=== PATIENT | male | born 1950 | race African-American/Black ===

== ENCOUNTER 2021-10-29 09:28 | Inpatient (IN) | payer BC, MEDICARE ==
[~2021-10-29] VITALS: Ht 190.5 cm; Wt 89.9 kg
[2021-10-29 10:44] LABS: EOSINOPHILS % 0.1 % (0.0-5.0); HEMOGLOBIN. 15.4 g/dL (14.0-18.0); LYMPHOCYTES % 10.9 % (20.0-50.0); MEAN CORPUSCULAR VOLUME 102.6 fL (80.0-94.0); MONOCYTES % 8.5 % (2.0-8.0); NEUTROPHILS % 80.5 % (40.0-76.0); RED BLOOD CELL COUNT 4.68 mill/uL (4.7-6.1); RED CELL DISTRIBUTION WIDTH 17.9 % (11.6-14.6)
[2021-10-29 10:46] LABS: CHLORIDE 115 mEq/L (98-107)
[2021-10-29 10:52] LABS: INR 1.7; PROTHROMBIN TIME 17.7 sec (9.6-11.0)
[2021-10-29 12:02] LABS: PLATELET ESTIMATE DECREASED
[2021-10-29 12:05] LABS: MEAN PLATELET VOLUME 11.5 fl (7.4-10.4); PLATELET 93 x1000/uL (130-400)
[2021-10-29] MEDS ORDERED: VANCOMYCIN 1G PREMIX 200 ML IV ONE (12:15)
[2021-10-29] MEDS ORDERED: PIPERACILLIN/TAZ 3.375G PREMIX 50 ML IV ONE (12:15)
[2021-10-29] MEDS ORDERED: VANCOMYCIN 1G PREMIX 200 ML IV NR (12:43)
[2021-10-29] MEDS ORDERED: VANCOMYCIN 1GM PMX (XELLIA) 200 ML IV NR (13:00)
[2021-10-29] MEDS ORDERED: PIPERACILLIN/TAZ 3.375G PREMIX 50 ML IV SCH ×2 (14:30→22:00)
[2021-10-29] MEDS ORDERED: ACETAMINOPHEN 325MG TABLET PO PRN (15:30)
[2021-10-29] MEDS ORDERED: VANCOMYCIN 1G PREMIX 200 ML IV SCH (15:30)
[2021-10-29] MEDS ORDERED: CLONIDINE 0.1MG TABLET PO PRN (15:30)
[2021-10-29] MEDS ORDERED: ONDANSETRON HCL 4MG/2ML INJ IV PRN (15:30)
[2021-10-29] MEDS ORDERED: ENOXAPARIN 40MG/0.4ML SYR SUBCUT SCH (18:00)
[2021-10-29] MEDS: IPRATROPIUM/ALBUTEROL 0.5-3(2.5)MG/3ML NEB HHN PRN (19:53)
[2021-10-29] MEDS: PIPERACILLIN/TAZOBACTAM 3.375G in DEXT 5% WATER 50ML IV SCH (22:38)
[2021-10-29] MEDS ORDERED: VANCOMYCIN 1.25GM PMX (XELLIA) 250 ML IV SCH (23:00)
[2021-10-30] VITALS (8 sets, daily range): BP systolic 133–156; BP diastolic 74–91
[2021-10-30] MEDS: LORAZEPAM 2MG/ML CPJ IV PRN (00:08)
[2021-10-30 02:05] LABS: CREATINE KINASE MB FRACTION 3.2 ng/mL (0.5-3.6)
[2021-10-30] MEDS: IPRATROPIUM/ALBUTEROL 0.5-3(2.5)MG/3ML NEB HHN PRN ×5 (04:33→21:11)
[2021-10-30] MEDS: PIPERACILLIN/TAZOBACTAM 3.375G in DEXT 5% WATER 50ML IV SCH ×3 (05:22→22:48)
[2021-10-30 06:58] LABS: CREATINE KINASE MB FRACTION 2.4 ng/mL (0.5-3.6)
[2021-10-30 07:00] LABS: HEMATOCRIT. 47.1 % (42.0-52.0); LYMPHOCYTES % 10.2 % (20.0-50.0); MEAN CORPUSCULAR HEMOGLOBIN 32.6 pg (28.0-32.0); MEAN CORPUSCULAR VOLUME 102.2 fL (80.0-94.0); MONOCYTES % 10.5 % (2.0-8.0); NEUTROPHILS % 79.3 % (40.0-76.0); PLATELET 90 x1000/uL (130-400); RED BLOOD CELL COUNT 4.61 mill/uL (4.7-6.1); RED CELL DISTRIBUTION WIDTH 18.3 % (11.6-14.6)
[2021-10-30] MEDS: ASPIRIN 81MG TABLET PO SCH ×2 (09:00→10:32)
[2021-10-30] MEDS: METOPROLOL TARTRATE 50MG TABLET PO SCH ×3 (09:00→21:00)
[2021-10-30] MEDS ORDERED: AMLO5TAB88 PO (18:03)
[2021-10-30] MEDS ORDERED: ASPI-1497 MT (18:03)
[2021-10-30] MEDS ORDERED: DAPA10TA MT (18:03)
[2021-10-30] MEDS ORDERED: DEXT 5%/0.45% NACL 1000ML 1,000 ML IV SCH (19:15)
[2021-10-30 21:17] LABS: CREATINE KINASE 117 IU/L (39-308)
[2021-10-30] MEDS ORDERED: ACETAMINOPHEN 650MG/20.3ML UDC PO PRN (21:45)
[2021-10-30] MEDS: METHYLPREDNISOLONE SOD SUCC 40 MG/ML VIAL IV SCH (22:48)
[2021-10-31] VITALS (43 sets, daily range): BP systolic 80–156; BP diastolic 25–118
[2021-10-31] MEDS: IPRATROPIUM/ALBUTEROL 0.5-3(2.5)MG/3ML NEB HHN SCH ×4 (01:07→22:03)
[2021-10-31 01:56] LABS: CLARITY URINE CLOUDY (CLEAR); COLOR URINE YELLOW (YELLOW); KETONES URINE TRACE (NEGATIVE); LEUKOCYTE ESTERASE URINE NEGATIVE (NEGATIVE); NITRITE URINE NEGATIVE (NEGATIVE); OCCULT BLOOD URINE NEGATIVE (NEGATIVE); PROTEIN URINE TRACE (NEGATIVE); SPECIFIC GRAVITY URINE 1.025 (1.005-1.030)
[2021-10-31 02:29] LABS: CANNABINOID URINE SCREEN NEGATIVE (NEGATIVE); OPIATES URINE SCREEN NEGATIVE (NEGATIVE); PHENCYCLIDINE URINE SCREEN NEGATIVE (NEGATIVE)
[2021-10-31 02:30] LABS: *AMPHETAMINES SCREEN URINE NEGATIVE (NEGATIVE); *BARBITURATES SCREEN URINE NEGATIVE (NEGATIVE); *BENZODIAZEPINES SCREEN URINE NEGATIVE (NEGATIVE); *COCAINE SCREEN URINE NEGATIVE (NEGATIVE); METHADONE URINE SCREEN NEGATIVE (NEGATIVE)
[2021-10-31] MEDS: PIPERACILLIN/TAZOBACTAM 3.375G in DEXT 5% WATER 50ML IV SCH ×2 (05:38→15:29)
[2021-10-31 06:02] LABS: HEMATOCRIT. 47.9 % (42.0-52.0); HEMOGLOBIN. 15.6 g/dL (14.0-18.0); MEAN CORPUSCULAR HEMOGLOBIN 33.1 pg (28.0-32.0); MEAN CORPUSCULAR VOLUME 101.9 fL (80.0-94.0); MEAN PLATELET VOLUME 11.7 fl (7.4-10.4); PLATELET 78 x1000/uL (130-400); RED CELL DISTRIBUTION WIDTH 18.3 % (11.6-14.6)
[2021-10-31 06:24] LABS: PHOSPHORUS 5.4 mg/dL (2.5-4.9)
[2021-10-31 07:26] LABS: NUCLEATED RED BLOOD CELLS 1 /100 WBC
[2021-10-31 07:27] LABS: PLATELET ESTIMATE DECREASED
[2021-10-31 08:36] LABS: BG BASE EXCESS -8.4 mmol/L (-2.0-2.0); BG CARBOXYHEMOGLOBIN 0.9 % (0.5-1.5); BG DEOXYHEMOGLOBIN 6.9 % (0.0-5.0); BG FRACTION INSPIRED OXYGEN 21; BG HCO3 ACT 15.5 mmol/L (22.0-26.0); BG METHEMOGLOBIN 0.4 % (0.0-1.5); BG OXYHEMOGLOBIN 91.8 % (94.0-97.0); BG PCO2 28.8 mmHg (35.0-45.0); BG PO2 77.1 mmHg (75.0-100.0); BG SAMPLE SITE RIGHT RADIAL; BG TOTAL HEMOGLOBIN 15.8 g/dL (12.0-18.0); BG VENT MODE ROOM AIR
[2021-10-31] MEDS: ASPIRIN 81MG TABLET PO SCH (09:00)
[2021-10-31] MEDS: METOPROLOL TARTRATE 50MG TABLET PO SCH (09:00)
[2021-10-31 10:00] LABS: BG BASE EXCESS -7.5 mmol/L (-2.0-2.0); BG CARBOXYHEMOGLOBIN 0.6 % (0.5-1.5); BG DEOXYHEMOGLOBIN 3.5 % (0.0-5.0); BG FRACTION INSPIRED OXYGEN 30; BG HCO3 ACT 17.6 mmol/L (22.0-26.0); BG METHEMOGLOBIN 0.3 % (0.0-1.5); BG OXYGEN SATURATION 96.5 % (92.0-98.5); BG OXYHEMOGLOBIN 95.6 % (94.0-97.0); BG PH 7.319 (7.350-7.450); BG SAMPLE SITE RIGHT RADIAL; BG TOTAL HEMOGLOBIN 16.1 g/dL (12.0-18.0); BG TOTAL RESPIRATORY RATE 16 b/min; BG VENT MODE MASK - BIPAP
[2021-10-31] MEDS: METHYLPREDNISOLONE SOD SUCC 40 MG/ML VIAL IV SCH ×2 (10:09→22:00)
[2021-10-31] MEDS: LORAZEPAM 2MG/ML CPJ IV PRN ×2 (10:09→20:00)
[2021-10-31] MEDS ORDERED: DEXTROSE 5% WATER 1,000 ML IV SCH (10:15)
[2021-10-31] MEDS ORDERED: LORAZEPAM 0.5MG TABLET PO SCH (10:45)
[2021-10-31] MEDS ORDERED: LORAZEPAM 2MG/ML CPJ IV NR ×2 (11:00→16:45)
[2021-10-31] MEDS ORDERED: SODIUM BICARBONATE 8.4% 1 MEQ/ML 50ML SYR IV NR (11:00)
[2021-10-31] MEDS: CARVEDILOL 6.25 MG TABLET NG SCH ×2 (13:30→21:00)
[2021-10-31] MEDS ORDERED: FUROSEMIDE 40MG/4ML VIAL IVP NR (13:33)
[2021-10-31] MEDS ORDERED: LIDOCAINE HCL 1% 20ML VIAL (Pyxis) INJ ONE (14:20)
[2021-10-31] MEDS: FAMOTIDINE 20MG/2ML VIAL IV SCH (15:29)
[2021-10-31 15:57] LABS: BG CARBOXYHEMOGLOBIN 0.5 % (0.5-1.5); BG DEOXYHEMOGLOBIN 5.3 % (0.0-5.0); BG FRACTION INSPIRED OXYGEN 30; BG HCO3 ACT 16.7 mmol/L (22.0-26.0); BG METHEMOGLOBIN 0.2 % (0.0-1.5); BG OXYGEN SATURATION 94.7 % (92.0-98.5); BG PCO2 24.4 mmHg (35.0-45.0); BG PH 7.453 (7.350-7.450); BG PO2 74.4 mmHg (75.0-100.0); BG SAMPLE SITE RIGHT BRACHIAL; BG TOTAL HEMOGLOBIN 16.5 g/dL (12.0-18.0); BG TOTAL RESPIRATORY RATE 37 b/min; BG VENT MODE MASK - BIPAP
[2021-10-31] MEDS: NITROGLYCERIN OINT 1GM/INCH UDPKT TD SCH ×2 (17:39→22:01)
[2021-10-31 17:46] LABS: HEPATITIS B SURFACE ANTIGEN NEGATIVE
[2021-10-31] MEDS ORDERED: LACTULOSE 300 ML in WATER FOR IRRIGATION,STERILE 700 ML IR SCH (18:00)
[2021-10-31] MEDS ORDERED: FAMOTIDINE 20MG TABLET PO SCH (21:00)
[2021-10-31] MEDS ORDERED: HYDRALAZINE 20MG/ML VIAL IV PRN (21:45)
[2021-10-31] MEDS ORDERED: DEXT 5%/0.45% NACL 1000ML 1,000 ML IV SCH (21:45)
[2021-10-31] MEDS: MORPHINE SULFATE 2 MG/ML CPJ (NOT FOR IM USE) IV PRN (22:02)
[2021-11-01] VITALS (32 sets, daily range): BP systolic 120–168; BP diastolic 48–109
[2021-11-01] MEDS: PIPERACILLIN/TAZOBACTAM 3.375G in DEXT 5% WATER 50ML IV SCH ×4 (01:20→23:12)
[2021-11-01] MEDS: IPRATROPIUM/ALBUTEROL 0.5-3(2.5)MG/3ML NEB HHN SCH ×4 (01:34→20:04)
[2021-11-01] MEDS: NITROGLYCERIN OINT 1GM/INCH UDPKT TD SCH ×3 (06:12→23:12)
[2021-11-01 06:30] LABS: HEMATOCRIT. 45.7 % (42.0-52.0); HEMOGLOBIN. 15.1 g/dL (14.0-18.0); MEAN CORPUSCULAR HEMOGLOBIN 33.1 pg (28.0-32.0); MEAN CORPUSCULAR VOLUME 100.4 fL (80.0-94.0); MEAN PLATELET VOLUME 11.6 fl (7.4-10.4); PLATELET 70 x1000/uL (130-400); RED BLOOD CELL COUNT 4.56 mill/uL (4.7-6.1); RED CELL DISTRIBUTION WIDTH 18.1 % (11.6-14.6)
[2021-11-01] MEDS: FAMOTIDINE 20MG/2ML VIAL IV SCH (07:56)
[2021-11-01] MEDS: METHYLPREDNISOLONE SOD SUCC 40 MG/ML VIAL IV SCH ×2 (07:56→23:11)
[2021-11-01] MEDS: LORAZEPAM 2MG/ML CPJ IV PRN ×2 (07:56→20:47)
[2021-11-01] MEDS: ASPIRIN 81MG TABLET PO SCH (07:57)
[2021-11-01] MEDS: CARVEDILOL 6.25 MG TABLET NG SCH (07:57)
[2021-11-01 08:01] LABS: NUCLEATED RED BLOOD CELLS 3 /100 WBC
[2021-11-01 08:02] LABS: PLATELET ESTIMATE DECREASED
[2021-11-01 08:22] LABS: BG BASE EXCESS -6.3 mmol/L (-2.0-2.0); BG DEOXYHEMOGLOBIN 1.2 % (0.0-5.0); BG FRACTION INSPIRED OXYGEN 30; BG HCO3 ACT 16.5 mmol/L (22.0-26.0); BG METHEMOGLOBIN 0.4 % (0.0-1.5); BG OXYGEN SATURATION 98.8 % (92.0-98.5); BG OXYHEMOGLOBIN 97.4 % (94.0-97.0); BG PH 7.405 (7.350-7.450); BG PO2 135.5 mmHg (75.0-100.0); BG SAMPLE SITE RIGHT RADIAL; BG TOTAL HEMOGLOBIN 16.3 g/dL (12.0-18.0); BG VENT MODE MASK - BIPAP
[2021-11-01] MEDS: DEXTROSE 5% WATER 1,000 ML IV SCH (10:42)
[2021-11-01] MEDS ORDERED: FUROSEMIDE 40MG/4ML VIAL IVP NR (12:45)
[2021-11-01] MEDS: METOPROLOL TARTRATE 5MG/5ML VIAL IV SCH (18:17)
[2021-11-02] VITALS (68 sets, daily range): BP systolic 84–156; BP diastolic 46–117
[2021-11-02] MEDS: METOPROLOL TARTRATE 5MG/5ML VIAL IV SCH ×3 (00:52→11:44)
[2021-11-02] MEDS: IPRATROPIUM/ALBUTEROL 0.5-3(2.5)MG/3ML NEB HHN SCH ×3 (01:01→12:33)
[2021-11-02] MEDS: MORPHINE SULFATE 2 MG/ML CPJ (NOT FOR IM USE) IV PRN (03:23)
[2021-11-02] MEDS: PIPERACILLIN/TAZOBACTAM 3.375G in DEXT 5% WATER 50ML IV SCH ×2 (05:15→15:13)
[2021-11-02] MEDS: DEXTROSE 5% WATER 1,000 ML IV SCH (05:15)
[2021-11-02] MEDS: NITROGLYCERIN OINT 1GM/INCH UDPKT TD SCH ×2 (05:16→15:13)
[2021-11-02 06:24] LABS: HEMATOCRIT. 45.7 % (42.0-52.0); MEAN CORPUSCULAR HEMOGLOBIN 33.7 pg (28.0-32.0); MEAN CORPUSCULAR VOLUME 102.8 fL (80.0-94.0); MEAN PLATELET VOLUME 11.8 fl (7.4-10.4); PLATELET 57 x1000/uL (130-400); RED BLOOD CELL COUNT 4.45 mill/uL (4.7-6.1); RED CELL DISTRIBUTION WIDTH 19.2 % (11.6-14.6)
[2021-11-02 08:04] LABS: BG BASE EXCESS -7.8 mmol/L (-2.0-2.0); BG CARBOXYHEMOGLOBIN 0.5 % (0.5-1.5); BG DEOXYHEMOGLOBIN 1.6 % (0.0-5.0); BG FRACTION INSPIRED OXYGEN 30; BG HCO3 ACT 16.1 mmol/L (22.0-26.0); BG METHEMOGLOBIN 0.3 % (0.0-1.5); BG OXYGEN SATURATION 98.4 % (92.0-98.5); BG OXYHEMOGLOBIN 97.6 % (94.0-97.0); BG PCO2 29.1 mmHg (35.0-45.0); BG PO2 125.4 mmHg (75.0-100.0); BG SAMPLE SITE RIGHT RADIAL; BG TOTAL HEMOGLOBIN 15.5 g/dL (12.0-18.0); BG TOTAL RESPIRATORY RATE 23 b/min; BG VENT MODE MASK - BIPAP
[2021-11-02] MEDS: ASPIRIN 81MG TABLET PO SCH (09:13)
[2021-11-02] MEDS: METHYLPREDNISOLONE SOD SUCC 40 MG/ML VIAL IV SCH (09:13)
[2021-11-02] MEDS: FAMOTIDINE 20MG/2ML VIAL IV SCH (09:13)
[2021-11-02 10:03] LABS: NUCLEATED RED BLOOD CELLS 2 /100 WBC
[2021-11-02 10:05] LABS: PLATELET ESTIMATE DECREAS
[2021-11-02] MEDS ORDERED: MORPHINE SULFATE 100 MG in DEXT 5% WATER 90 ML IV SCH (17:00)
[2021-11-02] MEDS ORDERED: MORPHINE SULFATE 250 MG in DEXT 5% WATER 250 ML IV PRN (18:00)
[2021-11-02 18:46] LABS: PHOSPHORUS 6.5 mg/dL (2.5-4.9)
[2021-11-02] MEDS ORDERED: LORAZEPAM 2MG/ML CPJ IV PRN (19:45)
[2021-11-03] VITALS (39 sets, daily range): BP systolic 91–153; BP diastolic 49–120
[2021-11-03] MEDS ORDERED: MORPHINE SULFATE 250 MG in DEXT 5% WATER 250 ML IV PRN ×4 (12:00)
== END 2021-11-03 17:14 | DRG 871 ==
LOC: ER 09:28 → EDBEDREQTM 11:07 → EDBEDREQ 11:07 → EDBEDREQSVC 11:07 → EDBEDREQTM 11:08 → EDBEDREQ 13:20 → ENRESERV 19:02 → 6WST 21:11 → 5EST 10-30 14:43 → CVICU 10-31 12:30
PROVIDERS: ADMIT Internal Medicine; ATTEND Internal Medicine
PROC: 5A09457 Assistance with Respiratory Ventilation, 24-96 Consecutive Hours, Continuous Positive Airway Pressure (ICD-10-PCS; principal; 2021-10-30)
DX: A41.9 Sepsis, unspecified organism (principal); I21.4 Non-ST elevation (NSTEMI) myocardial infarction; I50.43 Acute on chronic combined systolic (congestive) and diastolic (congestive) heart failure; J69.0 Pneumonitis due to inhalation of food and vomit; D68.9 Coagulation defect, unspecified; E87.2 Acidosis; G93.40 Encephalopathy, unspecified; N17.9 Acute kidney failure, unspecified; E87.0 Hyperosmolality and hypernatremia; I13.0 Hypertensive heart and chronic kidney disease with heart failure and stage 1 through stage 4 chronic kidney disease, or unspecified chronic kidney disease; E72.20 Disorder of urea cycle metabolism, unspecified; I42.9 Cardiomyopathy, unspecified; Z66 Do not resuscitate; Z51.5 Encounter for palliative care; D69.6 Thrombocytopenia, unspecified; E78.5 Hyperlipidemia, unspecified; I25.10 Atherosclerotic heart disease of native coronary artery without angina pectoris; J45.909 Unspecified asthma, uncomplicated; Z20.822 Contact with and (suspected) exposure to COVID-19; I65.21 Occlusion and stenosis of right carotid artery; N18.9 Chronic kidney disease, unspecified; K76.0 Fatty (change of) liver, not elsewhere classified; R06.03 Acute respiratory distress; Z86.73 Personal history of transient ischemic attack (TIA), and cerebral infarction without residual deficits; I25.2 Old myocardial infarction; Z95.1 Presence of aortocoronary bypass graft; Z82.49 Family history of ischemic heart disease and other diseases of the circulatory system; R94.31 Abnormal electrocardiogram [ECG] [EKG]
CPT/HCPCS: 36415; 36600; 71045; 76705; 76770; 78580; 80048; 80053; 80061; 80305; 81003; 82140; 82375; 82550; 82553; 82805; 82962; 83036; 83605; 83735; 83880; 84100; 84132; 84145; 84439; 84443; 84484; 85025; 86592; 86705; 86709; 86803; 87340; 87426; 93005; 93306; 93880; 93970; 94640; 94660; 99291; J1940; J2060; J2270; J2543; J2920; J3370; J3490; J7060; J7070; A4315